=== PATIENT | female | born 1985 | race African-American/Black ===

== ENCOUNTER 2016-11-04 15:53 | Emergency (ER) | payer SELFPAY ==
[~2016-11-04] VITALS: Ht 152.4 cm; Wt 126.1 kg
[2016-11-04 16:07] VITALS: BP 128/77
[2016-11-04 17:57] LABS: CALCIUM 8.5 mg/dL (8.5-10.1); CARBON DIOXIDE 24.7 mmol/L (21-32); CHLORIDE SERUM 108 mmol/L (98-107); CREATININE SERUM 0.6 mg/dL (0.6-1.0); GFR1 > 60 mL/min; GLUCOSE SERUM 103 mg/dL (74-106); POTASSIUM SERUM 3.8 mmol/L (3.5-5.1); SODIUM SERUM 141 mmol/L (136-145)
[2016-11-04 18:02] LABS: ALBUMIN 3.5 g/dL (3.4-5.0); ALKALINE PHOSPHATASE 54 U/L (46-116); ALT/SGPT 13 U/L (14-59); AST/SGOT 12 U/L (15-37); BILIRUBIN TOTAL 0.2 mg/dL (0.20-1.00); TOTAL PROTEIN, SERUM 7.3 g/dL (6.4-8.2)
[2016-11-04 18:29] LABS: BASOPHIL % 0.4 % (0-2); PLATELET COUNT 205 x10^3mcL (130-400); RED BLOOD CELLS 2.94 M/mm3 (4.10-5.10); RED CELL DISTRIBUTION WIDTH 19.3 % (11.5-14.5)
== END 2016-11-04 19:30 | disposition home or self-care (01) ==
LOC: ED 15:53
PROVIDERS: Emergency Medicine
DX: D57.00 Hb-SS disease with crisis, unspecified (principal); I10 Essential (primary) hypertension; M25.559 Pain in unspecified hip; Z88.6 Allergy status to analgesic agent; Z88.8 Allergy status to other drugs, medicaments and biological substances
CPT/HCPCS: 83880; J1200; J3010; J7030; Q0092